=== PATIENT | male | born 1975 | race Caucasian/White ===

== ENCOUNTER 2017-01-21 11:49 | Emergency (ER) | payer OTHER, MEDICARE ==
[~2017-01-21] VITALS: Ht 182.9 cm; Wt 149.0 kg
[2017-01-21 11:54] VITALS: BP 143/86; PULSE 89; RESP 22; O2SAT 96
--- NOTE | 2017-01-21 12:02 | ED.REPORT ---
HPI-Back Pain 40 and Over Date of Service Jan 21, 2017 ED Provider: History of Present Illness: having back spasms. on metformin, simvastatin, lisinopril, duloxetine , pioglitgzone and cetirizine. Sees Dr[facility] Javed in [facility]. Has ongoing back pain. had tizanidine some help but not last night 03/28 without spasms with spasms 08/28 pain Nursing Notes Stated Complaint: BACK PAIN Chief Complaint: Back Pain or Injury Nursing Notes Reviewed: Yes Allergies: Coded Allergies: No Known Allergies (Unverified , 01/21/17) General Time Seen by MD: 12:01 Chief Complaint Muscle spasm Hx Obtained From: Patient Sudden in Onset?: No Caused by: Spontaneous/no mechanism Past Medical History Past Medical History Reports: Diabetes mellitus, Denies: Asthma Past Surgical History tonsils, skin graft Reports: Tonsillectomy Smoking History Former Smoker (quit 4 years ago) Social History Alcohol Use: Denies alcohol use Drug Use: Denies drug use Occupation lives with cats, going to school for bookkeeping 01/21/2017 Ambulatory Status Independent Review of Systems Basic Review of Systems Eyes: Vision NL, No discharge Allergy / Immune: No allergy Psychiatric: Normal thought content Physical Exam Initial Vital Signs Vital Signs (First) Date Time Temp Pulse Resp B/P Pulse Ox O2 Delivery O2 Flow Rate FiO2 01/21/17 11:54 36.3 89 22 143/86 96 Room Air Initial VS: Reviewed, Vital signs normal Head / Eyes: Atraumatic, Normocephalic, PERRL ENT: Mucous membranes moist, Conjunctiva normal, No scleral icterus Neck: Supple, Non-tender, Full range of motion Lymphatic: No lymphadenopathy Extremities: Vascular intact, Neuro intact, No swelling, No tenderness Skin: Warm, Dry, No cyanosis Psychiatric: Mood/affect normal, Behavior normal, Normal thought content General/Constitutional: Awake, Alert, No acute distress, Well appearing, Well developed Respiratory / Chest: Atraumatic, Breath sounds NL, Breath sounds = bilat, No respiratory distress Cardiovascular: Heart rate NL, Regular rhythm, Heart sounds NL, No gallop Abdomen: Atraumatic, Soft, Non-tender Back: Atraumatic, Inspection NL, Full range of motion Neurologic: Oriented X3, Speech NL, No motor deficits, No sensory deficits, CN II - XII intact Re-Eval/Medical Decision Med Decision/Clinical Course discussed with patient, will do a trial of robaxin and he can decide which muscle relaxer works better. 41 year old male with long standing history of back pain, MRI last year does not indicate a surgical fix. Exam is consistent with musculosketal pain, no evidence of cauda equina syndrome or herniated disk. Discharge & Departure Impression: Primary Impression: Spasm of back muscles Disposition: Home Additional Instructions: The exam is reassuring. Ice is your friend. Heat feels better initially but then does increase the pain. Continue with your regular medication. Do a trial of robaxin and see which muscle relaxer works better for you. Then call Dr. Javed tomorrow and see what she desires. Gentle movement is helpful. do not stay in bed or sit in chair for an extended period of time. Referrals: Gabriela Javed MD EDSupervising Provider for APC: Dennis Bryant MD copies to: Gabriela Javed MD, Sue ARNP Jan 21, 2017 12:02
== END 2017-01-21 12:30 | disposition home or self-care (01) ==
LOC: SED 11:49
DX: M62.830 Muscle spasm of back (principal); E11.9 Type 2 diabetes mellitus without complications; Z79.84 Long term (current) use of oral hypoglycemic drugs; Z87.891 Personal history of nicotine dependence